=== PATIENT | female | born 2005 | race Caucasian/White ===

== ENCOUNTER 2023-01-13 14:45 | Emergency (ER) | payer OTHER, SELFPAY ==
--- NOTE | ~2023-01-13 | XR_ITS ---
EXAMINATION: XR foot RT min 3V DATE: 01/13/2023 15:32 INDICATION: Right foot pain. TECHNIQUE: 4 views of right foot were obtained. COMPARISON: None. FINDINGS: Bone alignment is normal. No fracture. Joint spaces are normal. IMPRESSION: 1. No fracture. Reviewed, dictated and finalized at location A. IMPRESSION: 1. No fracture.
--- NOTE | ~2023-01-13 | CT_ITS ---
EXAMINATION: CT brain wo con DATE: 01/13/2023 16:05 INDICATION: Head injury. TECHNIQUE: Computed tomography (CT) of the head was performed without intravenous contrast. The mA wa s adjusted according to patient size. Iterative reconstruction technique was employed. The dose-lengt h product was 605.33 mGy-cm. COMPARISON: None FINDINGS: There is no intracranial hemorrhage, acute infarction, or abnormal intracranial mass lesion . The ventricles are normal in size. The orbits are normal. The paranasal sinuses are clear. The mast oid air cells are normal. IMPRESSION: 1. Normal brain. Reviewed, dictated and finalized at location A. IMPRESSION: 1. Normal brain.
[2023-01-13 14:48] VITALS: BP 118/85; PULSE 85; RESP 18; TEMP 36.9; O2SAT 100
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
== END 2023-01-13 16:53 | disposition home or self-care (01) ==
PROVIDERS: Emergency Provider Emergency Medicine; PCP Family Medicine Adolescent Medicine
DX: S09.90XA Unspecified injury of head, initial encounter (principal); S99.921A Unspecified injury of right foot, initial encounter; V49.40XA Driver injured in collision with unspecified motor vehicles in traffic accident, initial encounter
CPT/HCPCS: 70450; 73630; 99284

== ENCOUNTER 2025-03-10 16:51 | Emergency (ER) | payer OTHER, SELFPAY ==
--- NOTE | ~2025-03-10 | CT_ITS ---
History: Head injury PROCEDURE: CT head without contrast. COMPARISON: 01/13/2023 TECHNIQUE: Axial imaging of the head performed from the skull base to the vertex without IV contrast. Sagittal a nd coronal reformations obtained. DLP: 605 mGy-cm FINDINGS: The ventricles are normal in size, shape and position. There is no mass, mass effect or midline shift. There is no abnormal extra-axial fluid collection or intracranial hemorrhage. Visualized paranasal sinuses are clear. The mastoid air cells are well aerated. No acute displaced fractures within the overlying cranium. Impression: No acute intracranial hemorrhage or suspicious mass effect. Reviewed, dictated and finalized at location A. Impression: No acute intracranial hemorrhage or suspicious mass effect.
--- OUTSIDE RECORDS SUMMARY | 2025-03-10 16:52 | XMS_ITS | Clinical Summary ---
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 Gender Identity Not on file Sexual Orientation Not on file Plan of Treatment Health Maintenance Due Date Last Done Comments Hepatitis C Virus (HCV) Screening 2003 Meningococcal B Immunization (1 of 2 - Standard) 2019 Pap Smear 02/18/2024 Influenza Immunization (#1) 2024 06/16/2014 SARS-COV-2 Immunization ( season) 2024 Respiratory Syncytial Virus (RSV) Immunization (Adult) (1 - 1-dose 75+ series) 2078 Hepatitis B Immunization Completed 003, 2003, 2003 Measles Mumps Rubella (MMR) Immunization Discontinued 03/30/2008, 05/23/2004 Polio (IPV) Immunization Discontinued 03/30/2008 DTaP/Tdap/Td Immunization Discontinued 2013, 03/30/2008, 10/02/2004, Additional history exists Meningococcal Immunization (ACWY) Aged Out 04/09/2014 No longer eligible based on patient's age to complete this topic TdaP Immunization Completed 04/09/2014 Varicella Immunization Discontinued 06/16/2014, 2003 Hepatitis A Immunization Discontinued 05/16/2017, 04/2014 Human Papillomavirus (HPV) Immunization Completed 05/16/2017, 06/16/2014, 04/09/2014 Pneumococcal Immunization Combined Aged Out No longer eligible based on patient's age to complete this topic Rotavirus Immunization Aged Out No lo nger eligible based on patient's age to complete this topic
--- OUTSIDE RECORDS SUMMARY | 2025-03-10 16:52 | XMS_ITS | Clinical Summary ---
Author Organization [facility] [employer] Address [address] [place] [address] Care Team Providers Care Powerhouse Operator Name Role Phone Maurice Kaplan MD Primary Care Provider + Source Comments [facility] [employer],non-owned Affiliates and Associated Physician Practices is amultiple site organization consisting of ambulatory clinics and hospital sitesin [place], [place], [place] and [place]. This disclosure is being madepursuant to the Care Everywhere program and may not contain all information available regarding this patient. Last updated 18.[facility] [employer] Allergies No known active allergies Medications * This document contains information received from the source organization and may not represent a complete record from that organization. * Be aware that medications may not be up to date on this document. Alwaysverify current medications with the patient. Melatonin 5 MG TBDP Take 1 Tab by mouth at bedtime. Occasionally takes 2 tabs Active multivitamin daily (THERAGRAN) tablet Take 1 Tab by mouth daily with food. Active amphetamine-dex troamphetamine (ADDERALL) 15 MG tablet Take 1 Tab by mouth once daily. 0 5 Active Pediatric Multivitamins-I rohit (FLINTSTONES PLUS IRON) CHEWIndications :Restless sleeper,Low iron stores 1 po daily 90 Tab PRN 5 Active Active Problems Problem Noted Date Diagnosed Date Primary snoring 10/30/2014 Overview (10/30/2014): diag psg 10/22/14 SUMMARY RDI Min SaO2 0.2 96.0% AHI: 0.1 Obstructive AHI: 0.1 Insomnia 10/21/2014 ADHD (attention deficit hyperactivity disorder) 10/21/2014 Tonsillar hypertrophy 10/21/2014 Resolved Problems Problem Noted Date Diagnosed Date Resolved Date Noisy breathing 10/21/2014 10/30/2014 Restless sleeper 10/21/2014 10/30/2014 Social History Tobacco Use Types Packs/Day Years Used Date Smoking Tobacco: Never Alcohol Use Standard Drinks/Week Comments No 0 (1 standard drink = 0.6 oz pur e alcohol) Comments No Sex and Gender Information Value Date Recorded Sex Assigned at Not on file 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 Gender Identity Not on file Sexual Orientation Not on file Last Filed Vital Signs Vital Sign Reading Time Taken Comments Blood Pressure 102/64 01/05/2015 8:05 AM CDT Pulse 76 01/05/2015 8:05 AM CDT Temperature - - Respiratory Rate 18 01/05/2015 8:05 AM CDT Oxygen Saturation 97% 01/05/2015 8:05 AM CDT Inhaled Oxygen Concentration - - Weight 56.2 kg (124 lb) 01/05/2015 8:05 AM CDT Height 154.9 cm (5' 1) 01/05/2015 8:05 AM CDT Body Mass Index 23.43 01/05/2015 8:05 AM CDT Plan of Treatment Health Maintenance Due Date Last Done Comments HIV SCREENING 2018 HPV VACCINE (1 - 3-dose series) 2018 CHLAMYDIA/GONORRHEA SCREENING 2019 MENINGOCOCCAL (Group B) VACC INE SHARED DECISION-MAKING (1 of 2 - Standard) 2019 HEPATITIS C SCREENING 02/12/2021 DTAP/TDAP/TD VACCINES (1 - Tdap) 2022 HEPATITIS B VACCINE (1 of 3 - 19+ 3-dose series) 2022 COVID-19 VACCINE (1 - 2023-2 5 season) 2024 DEPRESSION SCREENING 09/09/2024 INFLUENZA VACCINE (Season Ended) 2025 ZOSTER VACCINE (1 of 2) 2053 HIB VACCINE Aged Out No longer eligi ble based on patient's age to complete this topic MENINGOCOCCAL GROUPS A/C/Y/W VACCINE Aged Out No longer eligible b ased on patient's age to complete this topic PNEUMOCOCCAL VACCINE Aged Out No long er eligible based on patient's age to complete this topic Insurance [facility] Care Teams Powerhouse Operator Relationship Specialty Start Date End Date Maurice Kaplan MD [address] [place] [address] [phone] PCP - General Family Medicine 08/30/14
[2025-03-10 17:32] VITALS: BP 117/77; PULSE 97; RESP 18; TEMP 37; O2SAT 99
--- NOTE | 2025-03-10 17:40 | ED.HEATRA ---
HPI - Head Injury General Chief complaint: Head Injury Stated complaint: r/o concussion after head injury at work Time Seen by Provider: 03/10/25 17:08 Source: patient Mode of arrival: ambulatory Limitations: no limitations History of Present Illness HPI Narrative: This is a 20 year old female that presents to the ER for head injury. Reports this happened last night at work. Reports she was leaning forward and stood up and hit her head on a table. Reports she felt disoriented afterward, but did not lose consciousness. She has had a headache since. Presents for further management. Denies vision changes, vomiting, focal numbness or weakness. Related Data Allergies Allergy/AdvReac Type Severity Reaction Status Date / Time No Known Allergies Allergy Unknown Verified 03/10/25 17:32 Review of Systems Review of Systems: All systems reviewed & are unremarkable except as noted in HPI and below PMFSH Past Medical History Medical History (Updated 03/10/25 @ 18:30 by Phoebe Ibarra PA-C) GERD (gastroesophageal reflux disease) Family history of hypothyroidism CELIA (generalized anxiety disorder) Attention-deficit hyperactivity disorder, predominantly inattentive type Major depressive disorder, recurrent, mild Family History Family History Father Depression Diabetes mellitus Hypertension Grandparent Depression Social History Social History (Updated 11/18/24 @ 10:53 by Renee Espinosa CMA) Smoking status: Never smoker Second hand tobacco smoke exposure: No Alcohol intake: never Substance use: never Substance use type: does not use Do You Feel Safe in your Home?: Yes Lack of Transportation: No Lack of Food: Sometimes True Current Housing: I Have Housing Concerned About Future Housing: No Difficulty Paying Gas/Electric Bills: No Difficulty Paying for Meds: YES Currently Unemployed: No Education: High School Diploma/GED Difficulty w/ Childcare or Family Care: No Living arrangements: with family Occupation/Education: student Gender identity (if verbalized by the patient): Female Sexual Orientation (if Verbalized by the Patient): Bisexual Spiritual care concerns: No Agree to blood products: Yes Exam Narrative: GENERAL: Well-appearing, well-nourished, and in no acute distress. HEAD: Normocephalic, atraumatic. EYES: PERRLA and EOMI. ENT: Nares clear, no rhinorrhea or epistaxis. Mucous membranes moist. Oropharynx without tonsillar hypertrophy exudate or other lesions. Bilateral TMs pearly lemus non-bulging NECK: Supple. No adenopathy or masses. CHEST: Clear to auscultation. No respiratory distress. No wheezes rales or rhonchi HEART: Regular rate and rhythm. No murmur heard. Normal peripheral pulses. ABDOMEN: Soft, nontender, nondistended, normal active bowel sounds. EXTREMITIES: Normal range of motion. No edema. Strength equal in bilateral upper and lower extremities (5/5) SKIN: Warm, dry, no rash. NEURO: No focal deficits. Alert and oriented x3. Cranial nerves 2-12 grossly intact PSYCH: Normal mood and affect Course Course Emergency Course: patient updated on her workup and agrees with plan of care Vital Signs Vital signs: Vital Signs Temperature 98.6 F 03/10/25 17:32 Pulse Rate 97 03/10/25 17:32 Respiratory Rate 18 03/10/25 17:32 Blood Pressure 117/77 03/10/25 17:32 Pulse Oximetry 99 03/10/25 17:32 Oxygen Delivery Room Air 03/10/25 17:32 Temperature 98.6 F 03/10/25 17:32 Pulse Rate 97 03/10/25 17:32 Respiratory Rate 18 03/10/25 17:32 Blood Pressure 117/77 03/10/25 17:32 Pulse Oximetry 99 03/10/25 17:32 Oxygen Delivery Room Air 03/10/25 17:32 MDM - Head Injury MDM Narrative Medical decision making narrative: Patient presents to the emergency department for head injury sustained last night. Patient is neurologically intact. CT brain without acute findings. Patient was instructed on continued care of concussion. She is to follow up with primary provider. She was given warnings to return Differential Diagnosis Differential diagnosis: Likely concussion without loss of consciousness, closed head injury and subdural hematoma Imaging Data Radiologist's impression: ITS Impressions Head CT 03/10/25 18:19 Impression: No acute intracranial hemorrhage or suspicious mass effect. Critical Care Time Critical Care Time Critical Care Time: No Discharge Plan Discharge Clinical Impression: Closed head injury Qualifiers: Encounter type: initial encounter Qualified Code(s): S09.90XA - Unspecified injury of head, initial encounter Patient Disposition: Home Condition: Stable Instructions: Concussion (ED) Additional Instructions: Return to the emergency department if you experience fever, vision changes, vomiting, weakness, numbness, or any other symptoms that are concerning to you. Rest. Remain well hydrated. [id number] pain medication as needed Follow up with primary care doctor Patient Language: Albanian Prescriptions: No Action fluticasone propionate 50 mcg/actuation spray,suspension 2 spray intranasal DAILY Qty: 16 5RF Rx Instructions: administer into each nostril dextroamphetamine-amphetamine 10 mg capsule,extended release 24hr 10 mg PO DAILY Qty: 30 0RF Rx Instructions: Take 1 tablet by mouth daily. omeprazole 20 mg capsule,delayed release(DR/EC) 20 mg PO DAILY Qty: 30 1RF Rx Instructions: Take 1 capsule daily by mouth. sertraline 50 mg tablet 50 mg PO DAILY Qty: 90 1RF Rx Instructions: Take 1 tablet by mouth daily. Follow-up/Referrals: Maurice Kaplan MD [Physician] - Stand Alone Forms: Work/School Release IP
--- OUTSIDE RECORDS SUMMARY | 2025-03-10 18:08 | XMS_ITS | Clinical Summary ---
Author Organization [facility] Address [address] [place] [address] Care Team Providers Care Golf Professional Name Role Phone Maurice Kaplan MD Primary Care Provider + Source Comments [facility],non-owned Affiliates and Associated Physician Practices is amultiple site organization consisting of ambulatory clinics and hospital sitesin [place], [place], [place] and [place]. This disclosure is being madepursuant to the Care Everywhere program and may not contain all information available regarding this patient. 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
--- OUTSIDE RECORDS SUMMARY | 2025-03-10 18:08 | XMS_ITS | Clinical Summary ---
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
[2025-03-10 18:38] VITALS: BP 118/76; PULSE 74; RESP 15; TEMP 36.8; O2SAT 99
== END 2025-03-10 18:40 | disposition home or self-care (01) ==
PROVIDERS: Emergency Provider Physician Assistant
DX: S09.90XA Unspecified injury of head, initial encounter (principal); K21.9 Gastro-esophageal reflux disease without esophagitis; F41.1 Generalized anxiety disorder; F90.0 Attention-deficit hyperactivity disorder, predominantly inattentive type; F33.9 Major depressive disorder, recurrent, unspecified; Z79.899 Other long term (current) drug therapy; W22.03XA Walked into furniture, initial encounter
CPT/HCPCS: 70450; 99284